=== PATIENT | male | born 1965 | race Caucasian/White ===

== ENCOUNTER → 2016-08-24 | Outpatient (CLI) | payer BC ==
[~2016-08-24] MED LIST: INSU100C4 CONT INF; NAPR220T70 PO; OXYC-244 PO; [UNRECOGNIZED DRUG - CODE] PO
--- NOTE | 2016-08-24 16:42 | RAD ---
FDG tumor localization scan, PET/CT, 08/24/2016: History: Base of tongue cancer Following IV injection of 15.4 mCi of 18 F-FDG, whole-body imaging was performed. The noncontrast CT component was performed for attenuation correction and anatomic localization purposes rather for primary diagnosis. The patient's blood glucose level at the time of injection was 180 MG/DL. There is a focus of increased activity at the level of the base of the tongue at the midline, presumably corresponding to the patient's known neoplasm. It demonstrates a maximum SUV of 12.6. There is bilateral upper cervical adenopathy as noted on the outside CT study of 07/21/2016. The largest of these nodes lies on the right and measures 3.8 cm. These nodes are hypermetabolic demonstrating a maximum SUV of approximately 14. No hypermetabolic lesion is identified in the mediastinum or the lungs. Mildly increased activity at the shoulder joint levels, left. The right is compatible with arthritis. Normal GI tract and urinary tract activity is present in the abdomen and pelvis. No hypermetabolic abdominal or pelvic lesion is seen. There is moderate nonspecific prostatic enlargement. Heterogeneous foci of mildly increased activity are present throughout the spine and pelvis. There is also heterogeneity in the soft tissues suggesting that this appearance is largely technical in nature. There are scattered degenerative changes in the spine. The CT component shows no definite lytic or blastic lesions. No significant hypermetabolic abnormality is identified in either lower extremity. IMPRESSION: 1. Hypermetabolic focus at the base of the tongue compatible with patient's known malignancy. 2. Moderate sized hypermetabolic bilateral cervical lymph nodes compatible with metastatic disease. 3. Heterogeneous FDG uptake in the spine and pelvis as described above, likely on a technical basis.
== END | disposition home or self-care (01) ==
LOC: PETSC 10:49
PROVIDERS: ATTEND Radiology Radiation Oncology
DX: C01 Malignant neoplasm of base of tongue (principal); N40.0 Benign prostatic hyperplasia without lower urinary tract symptoms
CPT/HCPCS: 78816; A9552

== ENCOUNTER → 2016-08-28 | Outpatient (CLI) | payer BC ==
[2016-08-28 16:04] LABS: BASO % 1 % (0-3); EOS % 3 % (0-3); HEMATOCRIT 44.5 % (39.0-53.0); LYMPH # 1.1 x10^3/uL (1.0-4.8); LYMPH % 22 % (24-48); MEAN CORPUSCULAR HEMOGLOBIN 29 pg (25-35); MEAN CORPUSCULAR HGB CONC 34 g/dL (31-37); MEAN CORPUSCULAR VOLUME 87 fL (79-100); MONO % 9 % (0-9); NEUT % 66 % (31-73); PLATELET COUNT 220 x10^3/uL (140-400); RED BLOOD COUNT 5.11 x10^6/uL (4.30-5.70); RED CELL DISTRIBUTION WIDTH 13.3 % (11.5-14.5); WHITE BLOOD COUNT 4.9 x10^3/uL (4.0-11.0)
[2016-08-28 16:14] LABS: ALBUMIN 3.6 g/dL (3.4-5.0); ALBUMIN/GLOBULIN RATIO 0.8 (1.0-1.7); CREATININE 1.1 mg/dL (0.7-1.3); GFR 70.6; POTASSIUM 4.2 mmol/L (3.5-5.1); TOTAL BILIRUBIN 0.7 mg/dL (0.2-1.0)
== END | disposition home or self-care (01) ==
LOC: LAB 15:21
PROVIDERS: ATTEND Internal Medicine Hematology & Oncology
DX: C01 Malignant neoplasm of base of tongue (principal)
CPT/HCPCS: 36415; 80053; 85027

== ENCOUNTER → 2016-09-11 | Outpatient (CLI) | payer BC ==
[~2016-09-11] MED LIST changes: +SODI56GE DT
[2016-09-11 10:19] LABS: BASO # 0.1 x10^3/uL (0.0-0.2); BASO % 1 % (0-3); EOS % 3 % (0-3); HEMATOCRIT 42.3 % (39.0-53.0); HEMOGLOBIN 14.9 g/dL (13.0-17.5); LYMPH # 0.9 x10^3/uL (1.0-4.8); LYMPH % 21 % (24-48); MEAN CORPUSCULAR HEMOGLOBIN 30 pg (25-35); MEAN CORPUSCULAR HGB CONC 35 g/dL (31-37); MEAN CORPUSCULAR VOLUME 85 fL (79-100); MONO % 12 % (0-9); NEUT % 64 % (31-73); PLATELET COUNT 247 x10^3/uL (140-400); RED BLOOD COUNT 4.98 x10^6/uL (4.30-5.70); WHITE BLOOD COUNT 4.6 x10^3/uL (4.0-11.0)
[2016-09-11 10:30] LABS: ALBUMIN 3.8 g/dL (3.4-5.0); ALBUMIN/GLOBULIN RATIO 0.8 (1.0-1.7); CALCIUM 9.3 mg/dL (8.5-10.1); CREATININE 1.1 mg/dL (0.7-1.3); GFR 70.6; MAGNESIUM 2.1 mg/dL (1.8-2.4); TOTAL BILIRUBIN 0.7 mg/dL (0.2-1.0); TOTAL PROTEIN 8.3 g/dL (6.4-8.2)
== END | disposition home or self-care (01) ==
LOC: LAB 09:57
PROVIDERS: ATTEND Internal Medicine Hematology & Oncology
DX: C02.9 Malignant neoplasm of tongue, unspecified (principal)
CPT/HCPCS: 36415; 80053; 83735; 85027

== ENCOUNTER → 2016-10-04 | Outpatient (CLI) | payer BC ==
[~2016-10-04] MED LIST changes: +CHLO25TA4 PO; +GADOBUTROL 10 MMOL/10 ML VIAL IV ONE; +OMEP20TA63 PO; -OXYC-244 PO; +OXYC-327 PO
--- NOTE | 2016-10-04 12:25 | RAD ---
MRI of the Brain without and with Contrast 10/04/2016 Clinical History: Dizziness. Technique: Unenhanced T1-weighted sagittal and axial and FLAIR, T2-weighted, gradient echo and diffusion-weighted axial images of the brain were obtained. After the intravenous administration of 10 cc of Gadavist, enhanced T1-weighted axial, sagittal and coronal images of the brain were obtained. Findings: No previous studies are available for comparison. The ventricles and sulci are within normal limits in size and configuration. Patchy and several small scattered areas of abnormally increased signal intensity are seen within the periventricular and subcortical white matter of both cerebral hemispheres on the FLAIR and T2-weighted images consistent most likely with areas of minimal small vessel ischemic disease. No acute parenchymal abnormality is seen. No abnormal area of contrast enhancement is noted. No extra-axial fluid collection is seen. There is no MRI evidence of acute ischemia/infarction. Mild mucosal thickening is seen scattered throughout the paranasal sinuses. There are minimal bilateral mastoid effusions. Normal flow voids are seen within the major vascular structures surrounding the brain parenchyma. Impression: No acute parenchymal abnormality is seen. Electronically signed by: Lucas Borrego MD (10/04/2016 12:22 PM)
== END | disposition home or self-care (01) ==
LOC: MRI 07:54
PROVIDERS: ATTEND Internal Medicine Rheumatology
DX: H74.8X3 Other specified disorders of middle ear and mastoid, bilateral (principal); R42 Dizziness and giddiness
CPT/HCPCS: 70553; A9585

== ENCOUNTER → 2016-12-25 | Outpatient (CLI) | payer BC ==
[2016-11-17 08:11] VITALS: BP 132/84
[~2016-12-25] MED LIST changes: -GADOBUTROL 10 MMOL/10 ML VIAL IV ONE; +PILO5TAB11 PO
[2016-12-25 11:19] LABS: BASO % 1 % (0-3); EOS % 2 % (0-3); HEMATOCRIT 30.4 % (39.0-53.0); HEMOGLOBIN 10.4 g/dL (13.0-17.5); LYMPH # 0.2 x10^3/uL (1.0-4.8); LYMPH % 6 % (24-48); MEAN CORPUSCULAR HEMOGLOBIN 31 pg (25-35); MEAN CORPUSCULAR HGB CONC 34 g/dL (31-37); MEAN CORPUSCULAR VOLUME 92 fL (79-100); MONO % 8 % (0-9); NEUT % 83 % (31-73); PLATELET COUNT 141 x10^3/uL (140-400); RED CELL DISTRIBUTION WIDTH 15.9 % (11.5-14.5)
[2016-12-25 11:50] LABS: ALBUMIN 3.6 g/dL (3.4-5.0); ALBUMIN/GLOBULIN RATIO 0.9 (1.0-1.7); CALCIUM 8.8 mg/dL (8.5-10.1); CREATININE 1.5 mg/dL (0.7-1.3); GFR 49.1; POTASSIUM 4.9 mmol/L (3.5-5.1); TOTAL BILIRUBIN 0.6 mg/dL (0.2-1.0); TOTAL PROTEIN 7.5 g/dL (6.4-8.2)
== END | disposition home or self-care (01) ==
LOC: LAB 10:50
PROVIDERS: ATTEND Internal Medicine Hematology & Oncology
DX: C01 Malignant neoplasm of base of tongue (principal)
CPT/HCPCS: 36415; 80053; 85025

== ENCOUNTER → 2017-01-22 | Outpatient (CLI) | payer BC ==
[2016-11-17 08:11] VITALS: BP 132/84
[2017-01-22 10:49] LABS: BASO % 1 % (0-3); EOS % 2 % (0-3); HEMATOCRIT 39.8 % (39.0-53.0); HEMOGLOBIN 13.5 g/dL (13.0-17.5); LYMPH # 0.3 x10^3/uL (1.0-4.8); LYMPH % 7 % (24-48); MEAN CORPUSCULAR HEMOGLOBIN 32 pg (25-35); MEAN CORPUSCULAR HGB CONC 34 g/dL (31-37); MEAN CORPUSCULAR VOLUME 93 fL (79-100); MONO % 7 % (0-9); NEUT % 83 % (31-73); PLATELET COUNT 180 x10^3/uL (140-400); RED BLOOD COUNT 4.29 x10^6/uL (4.30-5.70); RED CELL DISTRIBUTION WIDTH 13.3 % (11.5-14.5); WHITE BLOOD COUNT 3.8 x10^3/uL (4.0-11.0)
[2017-01-22 11:06] LABS: ALBUMIN 3.9 g/dL (3.4-5.0); ALBUMIN/GLOBULIN RATIO 1.1 (1.0-1.7); CALCIUM 9.1 mg/dL (8.5-10.1); CREATININE 1.3 mg/dL (0.7-1.3); POTASSIUM 4.5 mmol/L (3.5-5.1); TOTAL BILIRUBIN 0.5 mg/dL (0.2-1.0); TOTAL PROTEIN 7.6 g/dL (6.4-8.2)
[2017-01-22 12:48] LABS: % BASOS 1 % (0-3); % EOS 2 % (0-5)
[2017-01-22 13:14] LABS: PLT ESTIMATE ADEQUATE (ADEQUATE)
== END | disposition home or self-care (01) ==
LOC: LAB 10:25
PROVIDERS: ATTEND Internal Medicine Hematology & Oncology
DX: C01 Malignant neoplasm of base of tongue (principal)
CPT/HCPCS: 36415; 80053; 85007; 85025

== ENCOUNTER → 2017-02-01 | Outpatient (CLI) | payer BC ==
[2016-11-17 08:11] VITALS: BP 132/84
[~2017-02-01] MED LIST changes: +CONTRAST GIVEN MC PRN; +IOHEXOL 300 MG/ML 75 ML VIAL IV ONE
--- NOTE | 2017-02-01 09:40 | RAD ---
Examination: CT soft tissue neck with IV contrast History: History of follow-up chemotherapy, radiation therapy, and cancer. Comparison: 07/21/2016. Technique: Axial CT images of the soft tissue neck were performed with IV contrast. Coronal and sagittal reformats are performed PQRS Compliance Statement: One or more of the following individualized dose reduction techniques were utilized for this examination: 1. Automated exposure control 2. Adjustment of the mA and/or kV according to patient size 3. Use of iterative reconstruction technique Findings: The visualized intracranial portion grossly appears unremarkable. The parapharyngeal space grossly appears unremarkable. The visualized parotid glands grossly appears unremarkable. The previously visualized base of tongue mass is not clearly identified on today's examination. The vocal cords grossly appears unremarkable. There is interval significant improvement in the bilateral cervical lymph nodes with the largest cervical lymph node now measuring 1.6 cm on the right, best visualized on series 2 image 40 and 1.1 cm on the left, best visualized on series 2 image 43. The apical lungs are clear. Moderate degenerative changes cervical spine most at C5-C6 vertebral levels. Impression: 1. Interval significant decrease in bilateral cervical lymphadenopathy likely good response to therapy. Previously visualized base of tongue lesion/malignancy is not visualized. Few enlarged bilateral cervical lymph nodes persists which have significantly improved since prior exam.
== END | disposition home or self-care (01) ==
LOC: CT 08:24
PROVIDERS: ATTEND Radiology Radiation Oncology
DX: C02.9 Malignant neoplasm of tongue, unspecified (principal); R59.9 Enlarged lymph nodes, unspecified
CPT/HCPCS: 70491; Q9967

== ENCOUNTER → 2017-04-30 | Outpatient (CLI) | payer OTHER ==
[2017-04-30 08:28] LABS: ADD MAN DIFF? NO
[2017-04-30 08:33] LABS: BASO # 0.1 x10^3/uL (0.0-0.2); BASO % 2 % (0-3); EOS # 0.1 x10^3/uL (0.0-0.7); EOS % 3 % (0-3); HEMATOCRIT 39.6 % (39.0-53.0); HEMOGLOBIN 13.4 g/dL (13.0-17.5); LYMPH # 0.5 x10^3/uL (1.0-4.8); LYMPH % 12 % (24-48); MEAN CORPUSCULAR HEMOGLOBIN 29 pg (25-35); MEAN CORPUSCULAR HGB CONC 34 g/dL (31-37); MEAN CORPUSCULAR VOLUME 87 fL (79-100); MONO # 0.4 x10^3/uL (0.0-1.1); MONO % 10 % (0-9); NEUT # 3.3 x10^3uL (1.8-7.7); NEUT % 73 % (31-73); PLATELET COUNT 213 x10^3/uL (140-400); RED BLOOD COUNT 4.55 x10^6/uL (4.30-5.70); RED CELL DISTRIBUTION WIDTH 13.7 % (11.5-14.5); WHITE BLOOD COUNT 4.5 x10^3/uL (4.0-11.0)
[2017-04-30 09:04] LABS: ALBUMIN 3.8 g/dL (3.4-5.0); ALBUMIN/GLOBULIN RATIO 0.9 (1.0-1.7); ALK PHOS 82 U/L (46-116); ALT (SGPT) 25 U/L (16-63); ANION GAP 10 (6-14); AST (SGOT) 14 U/L (15-37); BLOOD UREA NITROGEN 22 mg/dL (8-26); BUN/CREATININE RATIO 16 (6-20); CALCIUM 8.7 mg/dL (8.5-10.1); CARBON DIOXIDE 25 mmol/L (21-32); CHLORIDE 104 mmol/L (98-107); CREATININE 1.4 mg/dL (0.7-1.3); GFR 53.2; GLUCOSE 107 mg/dL (70-99); SODIUM 139 mmol/L (136-145); TOTAL BILIRUBIN 0.8 mg/dL (0.2-1.0); TOTAL PROTEIN 8.1 g/dL (6.4-8.2)
[2017-04-30] MEDS: IOHEXOL 300 MG/ML 100ML VIAL. IV ×2 (10:30)
== END | disposition home or self-care (01) ==
LOC: CT 08:12
DX: C01 Malignant neoplasm of base of tongue (principal); J34.2 Deviated nasal septum; M47.892 Other spondylosis, cervical region; E11.9 Type 2 diabetes mellitus without complications
CPT/HCPCS: 36415; 70491; 80053; 85025; Q9967

== ENCOUNTER → 2017-07-30 | Outpatient (CLI) | payer OTHER ==
[~2017-07-30] MED LIST changes: -CHLO25TA4 PO; -CONTRAST GIVEN MC PRN; -INSU100C4 CONT INF; +IOHEXOL 300 MG/ML 100ML VIAL.; -IOHEXOL 300 MG/ML 75 ML VIAL IV ONE; -NAPR220T70 PO; -OMEP20TA63 PO; -OXYC-327 PO; -PILO5TAB11 PO; -SODI56GE DT; -[UNRECOGNIZED DRUG - CODE] PO
[2017-07-30 09:28] LABS: ADD MAN DIFF? NO
[2017-07-30 09:38] LABS: BASO % 1 % (0-3); EOS # 0.1 x10^3/uL (0.0-0.7); EOS % 3 % (0-3); HEMATOCRIT 37.9 % (39.0-53.0); HEMOGLOBIN 13.3 g/dL (13.0-17.5); LYMPH # 0.5 x10^3/uL (1.0-4.8); LYMPH % 10 % (24-48); MEAN CORPUSCULAR HEMOGLOBIN 30 pg (25-35); MEAN CORPUSCULAR HGB CONC 35 g/dL (31-37); MEAN CORPUSCULAR VOLUME 86 fL (79-100); MONO # 0.3 x10^3/uL (0.0-1.1); MONO % 7 % (0-9); NEUT # 3.8 x10^3uL (1.8-7.7); NEUT % 80 % (31-73); PLATELET COUNT 199 x10^3/uL (140-400); RED BLOOD COUNT 4.43 x10^6/uL (4.30-5.70); RED CELL DISTRIBUTION WIDTH 13.3 % (11.5-14.5); WHITE BLOOD COUNT 4.7 x10^3/uL (4.0-11.0)
[2017-07-30 09:58] LABS: ALBUMIN 3.6 g/dL (3.4-5.0); ALBUMIN/GLOBULIN RATIO 0.9 (1.0-1.7); ALK PHOS 85 U/L (46-116); ALT (SGPT) 21 U/L (16-63); ANION GAP 8 (6-14); AST (SGOT) 12 U/L (15-37); BLOOD UREA NITROGEN 24 mg/dL (8-26); BUN/CREATININE RATIO 17 (6-20); CALCIUM 8.7 mg/dL (8.5-10.1); CARBON DIOXIDE 27 mmol/L (21-32); CHLORIDE 102 mmol/L (98-107); CREATININE 1.4 mg/dL (0.7-1.3); GFR 53.2; GLUCOSE 283 mg/dL (70-99); POTASSIUM 4.4 mmol/L (3.5-5.1); SODIUM 137 mmol/L (136-145); TOTAL BILIRUBIN 0.6 mg/dL (0.2-1.0); TOTAL PROTEIN 7.8 g/dL (6.4-8.2)
== END | disposition home or self-care (01) ==
LOC: CT 08:56
DX: C01 Malignant neoplasm of base of tongue (principal); E11.9 Type 2 diabetes mellitus without complications
CPT/HCPCS: 36415; 70491; 80053; 85025; Q9967

== ENCOUNTER → 2017-10-29 | Outpatient (CLI) | payer OTHER ==
[2017-10-29 12:45] LABS: ADD MAN DIFF? NO
[2017-10-29 12:49] LABS: BASO % 1 % (0-3); EOS # 0.1 x10^3/uL (0.0-0.7); EOS % 2 % (0-3); HEMATOCRIT 36.4 % (39.0-53.0); HEMOGLOBIN 12.8 g/dL (13.0-17.5); LYMPH # 0.6 x10^3/uL (1.0-4.8); LYMPH % 12 % (24-48); MEAN CORPUSCULAR HEMOGLOBIN 30 pg (25-35); MEAN CORPUSCULAR HGB CONC 35 g/dL (31-37); MEAN CORPUSCULAR VOLUME 84 fL (79-100); MONO # 0.4 x10^3/uL (0.0-1.1); MONO % 9 % (0-9); NEUT # 3.5 x10^3uL (1.8-7.7); NEUT % 76 % (31-73); PLATELET COUNT 192 x10^3/uL (140-400); RED BLOOD COUNT 4.34 x10^6/uL (4.30-5.70); RED CELL DISTRIBUTION WIDTH 14.4 % (11.5-14.5); WHITE BLOOD COUNT 4.7 x10^3/uL (4.0-11.0)
[2017-10-29 13:06] LABS: ALBUMIN 3.5 g/dL (3.4-5.0); ALBUMIN/GLOBULIN RATIO 0.9 (1.0-1.7); ALK PHOS 81 U/L (46-116); ALT (SGPT) 29 U/L (16-63); ANION GAP 8 (6-14); AST (SGOT) 18 U/L (15-37); BLOOD UREA NITROGEN 28 mg/dL (8-26); BUN/CREATININE RATIO 22 (6-20); CALCIUM 8.3 mg/dL (8.5-10.1); CARBON DIOXIDE 26 mmol/L (21-32); CHLORIDE 103 mmol/L (98-107); CREATININE 1.3 mg/dL (0.7-1.3); GLUCOSE 159 mg/dL (70-99); POTASSIUM 3.8 mmol/L (3.5-5.1); SODIUM 137 mmol/L (136-145); TOTAL BILIRUBIN 0.6 mg/dL (0.2-1.0); TOTAL PROTEIN 7.2 g/dL (6.4-8.2)
== END | disposition home or self-care (01) ==
LOC: LAB 12:08
DX: C01 Malignant neoplasm of base of tongue (principal); C79.89 Secondary malignant neoplasm of other specified sites; E11.9 Type 2 diabetes mellitus without complications; Z51.11 Encounter for antineoplastic chemotherapy
CPT/HCPCS: 36415; 80053; 85025

== ENCOUNTER → 2017-11-09 | Outpatient (CLI) | payer OTHER ==
[~2017-11-09] MED LIST changes: +CONTRAST GIVEN. MC; -IOHEXOL 300 MG/ML 100ML VIAL.
[2017-11-09] MEDS: IOHEXOL 300 MG/ML 100ML VIAL. IV (08:07)
== END | disposition home or self-care (01) ==
LOC: CT 09:50
DX: C01 Malignant neoplasm of base of tongue (principal); E11.9 Type 2 diabetes mellitus without complications; C79.89 Secondary malignant neoplasm of other specified sites
CPT/HCPCS: 70491; 71260